=== PATIENT | female | born 1985 | race Caucasian/White ===

== ENCOUNTER 2024-02-14 11:37 | Emergency (ER) | payer BC, SELFPAY ==
[2024-02-14] VITALS (7 sets, daily range): BP systolic 120–170; BP diastolic 82–100
--- NOTE | 2024-02-14 12:26 | ED.GENMED ---
History of Present Illness
General
Chief Complaint: Abdominal Pain
Time Seen by Provider: 02/14/24 12:00
Travel History
Have you had any contact with someone who has COVID-19?: No
Do you have any symptoms of coronavirus? Fever > 100 degrees, chills, cough, shortness of breath, sore throat, loss of taste or smell, muscle aches, or headache?: No
History of Present Illness
History of Present Illness:
38-year-old female with history of hypertension and hypothyroidism presents to the emergency department evaluation of right upper abdominal pain for the past week. She notes that she had a fever approxi-1 week ago that resolved, saw her primary
care physician several days ago and had outpatient labs that were unremarkable but her urinalysis was positive, was then started on TMP-SMX DS; has taken 5 doses thus far. States the pain is worsening and she was febrile this AM. Denies any
vomiting or diarrhea. Denies any lower urinary tract voiding symptoms. Did not take any antipyretics today. No history of abdominal surgeries
Review of Systems
Review of Systems
Allergies reviewed?: Yes
All Other Systems: ROS reviewed and negative except as documented in HPI and ROS
Phy Exam
Physical Exam
Physical Exam:
GEN: Well appearing, NAD, WDWN
Eyes: PERRLA, EOMs intact, no scleral icterus
HENT: NCAT, oral mucosa moist
Lungs: CTAB, no wheezes, rales, rhonchi, normal chest wall excursion
Cardiac: Tachycardic, regular
Abdomen: Soft, moderate to severe right upper quadrant tenderness with negative Paredes sign, no rigidity
Neuro: AO x 3
MSK: No gross deformity or ecchymosis. No edema. No digital clubbing
Skin: No rashes, petechiae. Normal color, no pallor or jaundice.
Psych: Calm, cooperative, proper hygiene
Course
Orders/Labs/Results
Orders:
Orders
02/14/24 12:01
0.9% Sodium Chloride 1000 ml [Nss] 1,000 ml IV BOLUS
02/14/24 12:37
Acetaminophen [Tylenol] 1,000 mg PO NOW STA
02/14/24 12:39
Complete Blood Count/With Diff Urgent
Comprehensive Metabolic Panel Urgent
HCG, Serum Qualitative Screen Urgent
Comment: ADD ON
Lactic Acid Q4H
Comment: CANCEL 2nd LACTIC ACID IF 1st LACTIC ACID IS LESS THAN 2
Lipase Urgent
Prothrombin Time Urgent
Blood Culture Q30M
NEHEMIAS Source: Blood/Venous
Specimen Description:
Blood Culture Q30M
NEHEMIAS Source: Blood/Venous
Specimen Description:
02/14/24 12:42
Urinalysis Reflex To Culture Urgent
Date Specimen was Collected: 02/14/24
Time Specimen was Collected: 12:39
Urine Microscopic Reflex Cult Urgent
Urine Culture Urgent
NEHEMIAS Source: U
Specimen Description:
Date Specimen was Collected: 02/14/24
Time Specimen was Collected: 12:39
02/14/24 13:18
Add On- LAB Urgent
Tests Added?: HCG qualitative
US Abdomen Complete/Upper Urgent
Comment:
Reason For Exam: RUQ/R flank pain
02/14/24 14:35
CT Abd/Pel (IV only)-DH only Urgent
Comment:
Reason For Exam: RUQ pain, fever, negative US
02/14/24 14:50
COVID-19 Antigen Urgent
Source: Nasal Swab
Influenza A+B Rapid Molecular Urgent
NEHEMIAS Source: Nasal Swab
Specimen Description:
02/14/24 16:48
CefTRIAXone [Rocephin] 1,000 mg IV NOW STA
Abnormal Lab Results
02/14/24 02/14/24
12:39 12:42
MCV 79.7 L fL
(81.0-99.0)
Absolute Lymphs (auto) 0.2 L 10^3/uL
(1.2-3.4)
Neutrophils % 84.3 H %
(42.2-75.2)
Lymphocytes % 3.4 L %
(20.5-51.1)
Sodium 134 L mmol/L
(135-145)
Carbon Dioxide 19 L mmol/L
(22-30)
Glucose 102 H mg/dl
(70-99)
Urine Ketones 3+ A
(Negative)
Urine Bilirubin 1+ A
(Negative)
Leukocyte Esterase Rfl 2+ A
(Negative)
Urine Bacteria (Reflex) Moderate A
(Negative)
02/14/24 12:39
02/14/24 12:39
Vital Signs
Initial and Last Documented VS:
Initial Vital Signs
Temp Pulse Resp BP Pulse Ox
102.5 F H 118 16 170/100 97
02/14/24 11:41 02/14/24 11:41 02/14/24 11:41 02/14/24 11:41 02/14/24 11:41
Last Documented Vital Signs
Temp Pulse Resp BP Pulse Ox
98.6 F 93 17 128/82 96
02/14/24 14:52 02/14/24 13:15 02/14/24 13:15 02/14/24 14:47 02/14/24 14:47
MDM/Problems Addressed
MDM/Problems Addressed:
Patient presenting with acute febrile illness of uncertain etiology. Imaging was obtained due to her right upper quadrant pain however no evidence for biliary pathology or intra-abdominal emergency is noted. Her labs are overall reassuring and
fever resolved with antipyretics. She does have moderate bacteriuria thus we will treat this as a resistant UTI given that Bactrim has not improved her symptoms. Will switch her Bactrim to a cephalosporin. First dose given in the emergency
department. She is suitable for discharge to home
*Critical Care Note
Total Time (30-74mins, 75-104mins- exclusive of procedures): Not Applicable
ED Attending Note
-
Portions of this chart may have been created with voice recognition software.� Occasional wrong word or��sound alike� substitutions may have occurred due to the inherent limitations of voice recognition software.
Discharge Plan
Departure
Patient Disposition: Home (Routine Discharge)
Date of Disposition: 02/14/24
Time of Disposition: 16:48
Patient with high blood pressure during this ER visit?: No
Discharge Problem:
Acute febrile illness, Urinary tract infection
Instructions: Urinary Tract Infection, Adult ED
Prescriptions:
New
cefdinir 300 mg capsule
300 mg PO BID 6 Days Qty: 12 0RF
Referrals:
Brittney Gross MD [Family Provider] -
Activity Restrictions/Additional Instructions:
Stop taking the Bactrim you are prescribed, start taking the cefdinir tomorrow morning. At this time is not clear what is causing her fever however we suspect a urinary tract infection. If your symptoms worsen or do not resolve within 3 to 5 days
please return to the emergency department or follow-up with your primary care physician
Interventions
Interventions:
*Risk Screen - Suicide Last Done: 02/14/24 11:41
*General Assessment Last Done: 02/14/24 11:41
*Neglect/Abuse Screening Last Done: 02/14/24 11:41
*ED COVID-19 Vaccine History Last Done: 02/14/24 11:41
IB-Zsicss-Elrlezofqo Assessment Last Done: 02/14/24 12:42
Discharge Date and Time
Print Language: CZECH
[2024-02-14] MEDS: NSS 1000 IV (12:45)
[2024-02-14] MEDS: TYLENOL 1000 MG PO (12:45)
[2024-02-14 12:54] LABS: % Basophils 0.2 % (0-2); % Eosinophils 5.5 % (0-6); % Immature Granulocytes 0.3 % (0-0.5); % Lymphocytes 3.4 % (20.5-51.1); % Monocytes 6.3 % (1.7-9.3); % Neutrophils 84.3 % (42.2-75.2); Absolute Eosinophils 0.3 10^3/uL (0-0.7); Absolute Lymphocytes 0.2 10^3/uL (1.2-3.4); Absolute Monocytes 0.4 10^3/uL (0.1-0.6); Hemoglobin 12.7 g/dL (12.0-16.0); Mean Corp Hgb Conc. 34.3 g/dL (33.0-37.0); Mean Corpuscular Hgb 27.4 pg (27.0-31.0); Mean Corpuscular Volume 79.7 fL (81.0-99.0); Mean Platelet Volume 9.1 fL (7.4-10.4); Nucleated Red Blood Cells % 0 %; Platelet Count 284 10^3/uL (130-400); Red Blood Cell Count 4.64 10^6/uL (4.20-5.40); Red Cell Dist. Width 13.9 % (11.5-14.5); White Blood Cell Count 5.9 10^3/uL (4.8-10.8)
[2024-02-14 13:02] LABS: INR 1.07; PT 13.7 Sec (11.4-14.6)
[2024-02-14 13:05] LABS: ALT (SGPT) 23 U/L (0-35); AST (SGOT) 32 U/L (14-36); Alkaline Phosphatase 86 U/L (38-126); Blood Urea Nitrogen 11 mg/dl (7-17); Calcium 9.2 mg/dl (8.4-10.2); Carbon Dioxide 19 mmol/L (22-30); Chloride 104 mmol/L (98-107); Glucose 102 mg/dl (70-99); Lipase 44 U/L (23-300); Potassium 4.2 mmol/L (3.5-5.1); Sodium 134 mmol/L (135-145); Total Bilirubin 0.2 mg/dl (0.2-1.3); eGFR > 60.00
[2024-02-14 13:23] LABS: Urine Albumin Trace (Neg - Trace); Urine Bilirubin 1+ (Negative); Urine Character Clear (Clear); Urine Color Yellow; Urine Glucose Negative (Negative); Urine Ketone 3+ (Negative); Urine Leukocyte 2+ (Negative); Urine Nitrite Negative (Negative); Urine Occult Blood Negative (Negative); Urine Urobilinogen Negative (Neg - 1+)
[2024-02-14 13:30] LABS: HCG, Serum Qualitative Screen Negative
[2024-02-14 14:14] LABS: Urine Bacteria Moderate (Negative); Urine Red Blood Cell 0-2 /HPF (0-2)
[2024-02-14 15:12] LABS: COVID-19 Antigen Negative (Negative)
[2024-02-14] MEDS: ROCEPHIN 1000 MG IV (16:51)
== END 2024-02-14 17:00 | disposition home or self-care (01) ==
LOC: EMR 11:37
PROVIDERS: Physician Assistant; EMERGENCY PHYSICIAN Emergency Medicine; FAMILY PHYSICIAN Internal Medicine
DX: B34.9 Viral infection, unspecified (principal); N39.0 Urinary tract infection, site not specified; I10 Essential (primary) hypertension; E03.9 Hypothyroidism, unspecified
CPT/HCPCS: 99284; 96374; 96361; 74177; 76700; 80053; 81003; 81015; 83605; 83690; 84703; 85025; 85610; 87040; 87086; 87502; 87811; Q9967

== ENCOUNTER → 2024-08-03 14:44 | Outpatient (REF) | payer BC, SELFPAY | LOC: REG 14:44 | PROVIDERS: ATTENDING PHYSICIAN Internal Medicine; FAMILY PHYSICIAN Internal Medicine | DX: R10.30 Lower abdominal pain, unspecified (principal); R19.8 Other specified symptoms and signs involving the digestive system and abdomen | CPT/HCPCS: 74019 ==